=== PATIENT | female | born 1990 | race Caucasian/White ===

== ENCOUNTER 2018-06-23 14:16 | Emergency (ER) | payer OTHER ==
[~2018-06-23] VITALS: Ht 160 cm; Wt 56.7 kg
[~2018-06-23 14:16] MED LIST: ACETAMINOPHEN-1 EAC1 PO; BACTRIM DS TAB1 EACH PO; CLEOCIN HCL150 MG PO; IBUPROFEN 800800 M1 PO; PROMETHAZINE; PROMETHAZINE12.5 M1 PO; PYRIDIUM200 MG PO; ZOFRAN ODT4 MG PO
[2018-06-23] MEDS ORDERED: FLEXERIL PO (16:09)
[2018-06-23] MEDS ORDERED: NABUMETONE 750750 M1 PO (16:09)
[2018-06-23 16:22] VITALS: BP 145/80
== END 2018-06-23 16:22 | disposition home or self-care (01) ==
LOC: M.ERS 14:16
DX: S43.491A Other sprain of right shoulder joint, initial encounter (principal); S09.90XA Unspecified injury of head, initial encounter; F17.200 Nicotine dependence, unspecified, uncomplicated; F41.9 Anxiety disorder, unspecified; G43.909 Migraine, unspecified, not intractable, without status migrainosus; Z88.1 Allergy status to other antibiotic agents; Z88.5 Allergy status to narcotic agent; Z91.040 Latex allergy status; Z98.890 Other specified postprocedural states; Y04.2XXA Assault by strike against or bumped into by another person, initial encounter; Y92.89 Other specified places as the place of occurrence of the external cause; Y93.89 Activity, other specified; Y99.8 Other external cause status